=== PATIENT | female | born 1950 | race Two or more races ===

== ENCOUNTER 2017-05-16 08:14 | Outpatient (CLI) | payer OTHER | END 2017-05-16 15:00 | disposition home or self-care (01) | LOC: SONOGRAMA 08:14 | DX: E04.1 Nontoxic single thyroid nodule (principal) ==

== ENCOUNTER 2017-05-16 08:23 | Outpatient (CLI) | payer OTHER | END 2017-05-16 09:54 | disposition home or self-care (01) | LOC: RAD 08:23 | DX: D68.8 Other specified coagulation defects (principal); H25.9 Unspecified age-related cataract ==

== ENCOUNTER 2017-05-20 11:02 | Outpatient (CLI) | payer OTHER | END 2017-05-20 11:15 | disposition home or self-care (01) | LOC: NUCLEAR 11:02 | DX: I00 Rheumatic fever without heart involvement (principal); I52 Other heart disorders in diseases classified elsewhere ==

== ENCOUNTER 2017-08-14 10:26 | Outpatient (CLI) | payer OTHER | END 2017-08-14 10:38 | disposition home or self-care (01) | LOC: RAD 501 10:26 | DX: G89.21 Chronic pain due to trauma (principal) ==

== ENCOUNTER 2017-09-03 11:47 | Outpatient (CLI) | payer OTHER | END 2017-09-03 12:19 | disposition home or self-care (01) | LOC: RAD 501 11:47 | DX: S29.8XXA Other specified injuries of thorax, initial encounter (principal) ==

== ENCOUNTER 2018-01-14 14:50 | Outpatient (CLI) | payer OTHER | END 2018-01-14 15:00 | disposition home or self-care (01) | LOC: NUCLEAR 14:50 | DX: M81.0 Age-related osteoporosis without current pathological fracture (principal) ==

== ENCOUNTER 2018-01-16 10:21 | Outpatient (CLI) | payer OTHER | END 2018-01-16 10:35 | disposition home or self-care (01) | LOC: MAMO-SONO 10:21 | DX: Z12.31 Encounter for screening mammogram for malignant neoplasm of breast (principal); Z87.898 Personal history of other specified conditions; N60.01 Solitary cyst of right breast; N60.02 Solitary cyst of left breast ==

== ENCOUNTER 2018-01-30 09:26 | Outpatient (CLI) | payer OTHER | END 2018-01-30 09:44 | disposition home or self-care (01) | LOC: SONOGRAMA 09:26 | DX: N60.11 Diffuse cystic mastopathy of right breast (principal); N60.12 Diffuse cystic mastopathy of left breast; N63.41 Unspecified lump in right breast, subareolar; N63.42 Unspecified lump in left breast, subareolar ==

== ENCOUNTER → 2018-04-30 | Outpatient (CLI) | payer OTHER | END | disposition home or self-care (01) | LOC: NUCLEAR 11:00 | DX: I87.2 Venous insufficiency (chronic) (peripheral) (principal); I70.211 Atherosclerosis of native arteries of extremities with intermittent claudication, right leg; I70.212 Atherosclerosis of native arteries of extremities with intermittent claudication, left leg ==

== ENCOUNTER → 2018-05-01 | Outpatient (CLI) | payer OTHER | END | disposition home or self-care (01) | LOC: NUCLEAR 11:40 | DX: I87.2 Venous insufficiency (chronic) (peripheral) (principal); I70.211 Atherosclerosis of native arteries of extremities with intermittent claudication, right leg; I70.212 Atherosclerosis of native arteries of extremities with intermittent claudication, left leg ==

== ENCOUNTER 2018-05-04 14:19 | Outpatient (CLI) | payer OTHER | END 2018-05-04 14:23 | disposition home or self-care (01) | LOC: RAD 14:19 | DX: M54.5 Low back pain (principal) ==

== ENCOUNTER 2018-07-10 14:40 | Outpatient (CLI) | payer OTHER | END 2018-07-10 14:53 | disposition home or self-care (01) | LOC: RAD 14:40 | DX: M77.32 Calcaneal spur, left foot (principal); M77.31 Calcaneal spur, right foot ==

== ENCOUNTER 2019-01-12 08:10 | Outpatient (CLI) | payer OTHER | END 2019-01-12 08:26 | disposition home or self-care (01) | LOC: NUCLEAR 08:10 | DX: I11.9 Hypertensive heart disease without heart failure (principal) ==

== ENCOUNTER 2019-02-18 12:13 | Outpatient (CLI) | payer OTHER | END 2019-02-18 17:00 | disposition home or self-care (01) | LOC: TOM 12:13 | DX: R68.84 Jaw pain (principal) ==

== ENCOUNTER 2019-06-01 13:11 | Outpatient (CLI) | payer OTHER | END 2019-06-01 13:26 | disposition home or self-care (01) | LOC: SONOGRAMA 13:11 | DX: E04.1 Nontoxic single thyroid nodule (principal) ==

== ENCOUNTER → 2020-01-03 | Outpatient (CLI) | payer OTHER | END | disposition home or self-care (01) | LOC: MAMO-SONO 09:45 | PROVIDERS: ATTEND Surgery | DX: Z12.31 Encounter for screening mammogram for malignant neoplasm of breast (principal); N60.11 Diffuse cystic mastopathy of right breast; N60.12 Diffuse cystic mastopathy of left breast ==

== ENCOUNTER 2020-04-26 09:57 | Outpatient (CLI) | payer OTHER | END 2020-04-26 10:03 | disposition home or self-care (01) | LOC: LAB 09:57 | PROVIDERS: ATTEND Internal Medicine | DX: D64.89 Other specified anemias (principal); I10 Essential (primary) hypertension; E11.9 Type 2 diabetes mellitus without complications; E78.00 Pure hypercholesterolemia, unspecified; N39.0 Urinary tract infection, site not specified; E03.8 Other specified hypothyroidism; R80.8 Other proteinuria ==

== ENCOUNTER 2020-10-04 12:57 | Outpatient (CLI) | payer OTHER | END 2020-10-04 13:02 | disposition home or self-care (01) | LOC: NUCLEAR 12:57 | PROVIDERS: ATTEND Obstetrics & Gynecology | DX: M81.0 Age-related osteoporosis without current pathological fracture (principal); M85.80 Other specified disorders of bone density and structure, unspecified site ==

== ENCOUNTER 2020-11-08 14:32 | Outpatient (CLI) | payer OTHER | END 2020-11-08 14:49 | disposition home or self-care (01) | LOC: RAD 14:32 | PROVIDERS: ATTEND Internal Medicine | DX: M25.511 Pain in right shoulder (principal); M25.521 Pain in right elbow ==

== ENCOUNTER 2021-01-15 14:39 | Outpatient (CLI) | payer OTHER | END 2021-01-15 14:51 | disposition home or self-care (01) | LOC: RAD 14:39 | PROVIDERS: ATTEND Internal Medicine | DX: M25.562 Pain in left knee (principal) ==

== ENCOUNTER 2021-01-16 13:59 | Outpatient (CLI) | payer OTHER | END 2021-01-16 14:04 | disposition home or self-care (01) | LOC: MAMO-SONO 13:59 | PROVIDERS: ATTEND Surgery | DX: N60.11 Diffuse cystic mastopathy of right breast (principal); N60.12 Diffuse cystic mastopathy of left breast; Z12.31 Encounter for screening mammogram for malignant neoplasm of breast ==

== ENCOUNTER 2021-02-06 07:56 | Outpatient (CLI) | payer OTHER | END 2021-02-06 08:06 | disposition home or self-care (01) | LOC: MRI 07:56 | PROVIDERS: ATTEND Internal Medicine | DX: M17.12 Unilateral primary osteoarthritis, left knee (principal); M25.562 Pain in left knee | CPT/HCPCS: 73721 ==

== ENCOUNTER 2021-03-22 13:20 | Outpatient (CLI) | payer OTHER | END 2021-03-22 13:28 | disposition home or self-care (01) | LOC: RAD 13:20 | PROVIDERS: ATTEND Orthopaedic Surgery | DX: R07.9 Chest pain, unspecified (principal) ==

== ENCOUNTER 2021-04-03 15:15 | Outpatient (CLI) | payer OTHER | END 2021-04-03 15:30 | disposition home or self-care (01) | LOC: PPH VACUNA 15:15 | PROVIDERS: ATTEND Emergency Medicine Pediatric Emergency Medicine | DX: Z23 Encounter for immunization (principal) ==

== ENCOUNTER 2022-01-21 08:03 | Outpatient (CLI) | payer OTHER | END 2022-01-21 08:15 | disposition home or self-care (01) | LOC: MAMO-SONO 08:03 | PROVIDERS: ATTEND Surgery | DX: N60.11 Diffuse cystic mastopathy of right breast (principal); N60.12 Diffuse cystic mastopathy of left breast ==

== ENCOUNTER 2022-02-18 14:36 | Outpatient (CLI) | payer OTHER | END 2022-02-18 14:42 | disposition home or self-care (01) | LOC: RAD 14:36 | PROVIDERS: ATTEND Physical Medicine & Rehabilitation | DX: M54.50 Low back pain, unspecified (principal) ==

== ENCOUNTER 2022-04-12 14:10 | Outpatient (CLI) | payer OTHER | END 2022-04-12 15:44 | disposition home or self-care (01) | LOC: RAD 14:10 | PROVIDERS: ATTEND Internal Medicine | DX: E04.2 Nontoxic multinodular goiter (principal); E03.8 Other specified hypothyroidism; M17.11 Unilateral primary osteoarthritis, right knee ==

== ENCOUNTER 2022-08-22 13:43 | Emergency (ER) | payer OTHER ==
[~2022-08-22] VITALS: Ht 157.5 cm; Wt 83.9 kg
== END 2022-08-22 16:50 | disposition home or self-care (01) ==
LOC: ER 13:43
DX: U07.1 COVID-19 (principal); K21.9 Gastro-esophageal reflux disease without esophagitis; E78.00 Pure hypercholesterolemia, unspecified; E03.9 Hypothyroidism, unspecified; I10 Essential (primary) hypertension

== ENCOUNTER 2022-11-29 13:34 | Outpatient (CLI) | payer OTHER | END 2022-11-29 13:35 | disposition home or self-care (01) | LOC: NUCLEAR 13:34 | PROVIDERS: ATTEND Internal Medicine | DX: M81.0 Age-related osteoporosis without current pathological fracture (principal) ==

== ENCOUNTER 2023-01-22 08:03 | Outpatient (CLI) | payer OTHER | END 2023-01-22 08:16 | disposition home or self-care (01) | LOC: MAMO-SONO 08:03 | PROVIDERS: ATTEND Surgery | DX: N60.11 Diffuse cystic mastopathy of right breast (principal); N60.12 Diffuse cystic mastopathy of left breast; Z12.31 Encounter for screening mammogram for malignant neoplasm of breast ==

== ENCOUNTER → 2023-03-10 | Outpatient (CLI) | payer OTHER | END | disposition home or self-care (01) | LOC: RAD 11:39 | PROVIDERS: ATTEND Internal Medicine | DX: S49.92XA Unspecified injury of left shoulder and upper arm, initial encounter (principal); M15.0 Primary generalized (osteo)arthritis; M54.17 Radiculopathy, lumbosacral region ==

== ENCOUNTER 2023-03-12 08:53 | Outpatient (CLI) | payer OTHER | END 2023-03-12 08:55 | disposition home or self-care (01) | LOC: NUCLEAR 08:53 | PROVIDERS: ATTEND Surgery | DX: I87.2 Venous insufficiency (chronic) (peripheral) (principal) ==

== ENCOUNTER 2023-04-28 10:08 | Outpatient (CLI) | payer OTHER | END 2023-04-28 10:22 | disposition home or self-care (01) | LOC: SONOGRAMA 10:08 | PROVIDERS: ATTEND General Practice | DX: E04.1 Nontoxic single thyroid nodule (principal); E03.8 Other specified hypothyroidism; Z68.32 Body mass index [BMI] 32.0-32.9, adult; I11.9 Hypertensive heart disease without heart failure; E78.2 Mixed hyperlipidemia; E66.09 Other obesity due to excess calories; R73.01 Impaired fasting glucose; Z13.1 Encounter for screening for diabetes mellitus ==

== ENCOUNTER 2024-01-26 10:01 | Outpatient (CLI) | payer OTHER | END 2024-01-26 10:09 | disposition home or self-care (01) | LOC: MAMO-SONO 10:01 | PROVIDERS: ATTEND Obstetrics & Gynecology | DX: N60.11 Diffuse cystic mastopathy of right breast (principal); N60.12 Diffuse cystic mastopathy of left breast; Z12.31 Encounter for screening mammogram for malignant neoplasm of breast; M25.512 Pain in left shoulder ==

== ENCOUNTER 2024-02-24 07:07 | Outpatient (CLI) | payer OTHER | END 2024-02-24 07:15 | disposition home or self-care (01) | LOC: SONOGRAMA 07:07 | PROVIDERS: ATTEND Surgery | DX: K76.0 Fatty (change of) liver, not elsewhere classified (principal); R10.2 Pelvic and perineal pain ==

== ENCOUNTER 2024-08-31 13:54 | Outpatient (CLI) | payer OTHER | END 2024-08-31 13:57 | disposition home or self-care (01) | LOC: SONOGRAMA 13:54 | PROVIDERS: ATTEND Internal Medicine | DX: E04.1 Nontoxic single thyroid nodule (principal) ==

== ENCOUNTER 2024-09-01 13:47 | Outpatient (CLI) | payer OTHER | END 2024-09-01 13:58 | disposition home or self-care (01) | LOC: MRI 13:47 | PROVIDERS: ATTEND Internal Medicine | DX: S80.911A Unspecified superficial injury of right knee, initial encounter (principal) | CPT/HCPCS: 73721 ==

== ENCOUNTER 2024-10-19 10:28 | Outpatient (CLI) | payer OTHER | END 2024-10-19 10:32 | disposition home or self-care (01) | LOC: RAD 10:28 | PROVIDERS: ATTEND Orthopaedic Surgery | DX: Z76.89 Persons encountering health services in other specified circumstances (principal) ==

== ENCOUNTER 2024-10-19 11:12 | Outpatient (CLI) | payer OTHER ==
[2024-10-19 11:36] LABS: BASO % 0.7 % (0.1-1.2); EOS # 0.18 (0.04-0.54); EOS % 3.1 % (0.7-7.0); LYMPH # 2.03 (1.18-3.74); LYMPH % 35.4 % (19.3-53.1); MEAN PLATELET VOLUME 12.20 fl (9.4-12.4); MONO # 0.59 (0.24-0.82); MONO % 10.3 % (4.7-12.5); NEUT # 2.87 (1.56-6.13); NEUT % 50.2 % (34.0-71.1); RED CELL DISTRIBUTION WIDTH 14.7 % (11.6-14.4)
[2024-10-19 11:56] LABS: URINE APPEARANCE Clear; URINE BILIRRUBIN Negative (NEGATIVE); URINE BLOOD Negative; URINE COLOR Yellow; URINE GLUCOSE Negative (NEGATIVE); URINE KETONE Trace (NEGATIVE); URINE LEUKOCYTE Negative; URINE NITRATE Negative; URINE PROTEIN Negative (NEGATIVE); URINE UROBILINOGEN 0.2 E.U./dl
[2024-10-19 11:59] LABS: URINE BACTERIA 69.6 uL (0.0-1933); URINE EPITHELIAL CELLS 5.9 uL (0.0-38.8); URINE RBC 18.0 uL (0.0-20.8); URINE WBC 2.7 uL (0.0-23.2)
[2024-10-19 12:02] LABS: URINE CAST 0.43 uL (0.0-1.40)
[2024-10-19 12:04] LABS: ALT/SGPT 19.0 U/L (12-78); AST/SGOT 15.0 U/L (15-37); BILIRUBIN TOTAL 0.45 mg/dL (0.3-1.2); BUN CREA RATIO 31.0 (7.0-25.0); CREATININE SERUM 0.8 mg/dL (0.55-1.02); GFR 70.51; GLOBULINA 3.5 G/DL (2.4-3.5); GLUCOSE FASTING 112.0 mg/dL (65-100); OSMOLALITY SERUM 288.0 MOSM/KG (275-295)
[2024-10-19 12:26] LABS: COL EPI 116 SECONDS (82-175)
[2024-10-19 12:32] LABS: INR 0.96
== END 2024-10-19 11:17 | disposition home or self-care (01) ==
LOC: LAB 11:12
PROVIDERS: ATTEND Orthopaedic Surgery
DX: D64.9 Anemia, unspecified (principal); E88.9 Metabolic disorder, unspecified; D68.8 Other specified coagulation defects; N39.0 Urinary tract infection, site not specified; Z22.322 Carrier or suspected carrier of Methicillin resistant Staphylococcus aureus; E11.9 Type 2 diabetes mellitus without complications

== ENCOUNTER 2025-01-17 10:12 | Outpatient (CLI) | payer OTHER | END 2025-01-17 10:13 | disposition home or self-care (01) | LOC: NUCLEAR 10:12 | PROVIDERS: ATTEND Internal Medicine | DX: M81.0 Age-related osteoporosis without current pathological fracture (principal) ==

== ENCOUNTER 2025-01-27 07:46 | Outpatient (CLI) | payer OTHER | END 2025-01-27 07:51 | disposition home or self-care (01) | LOC: MAMO-SONO 07:46 | PROVIDERS: ATTEND Surgery | DX: N60.11 Diffuse cystic mastopathy of right breast (principal); N60.12 Diffuse cystic mastopathy of left breast; Z12.31 Encounter for screening mammogram for malignant neoplasm of breast ==